=== PATIENT | female | born 1950 | race Two or more races ===

== ENCOUNTER 2022-07-15 03:56 | Emergency (ER) | payer OTHER ==
[~2022-07-15] VITALS: Ht 149.9 cm; Wt 69.9 kg
[2022-07-15] MEDS ORDERED: SYNTHROID50 MCG (04:12)
[2022-07-15] MEDS ORDERED: ZESTRIL40 M1 (04:12)
[2022-07-15] MEDS ORDERED: ROUVASTATIN (04:13)
[2022-07-15] MEDS ORDERED: INDAPAMIDE1.25 MG (04:13)
[2022-07-15] MEDS ORDERED: ECOTRIN81 MG (04:14)
== END 2022-07-15 06:32 | disposition home or self-care (01) ==
LOC: ER 03:56
DX: K29.60 Other gastritis without bleeding (principal); Z88.0 Allergy status to penicillin; Z91.013 Allergy to seafood